=== PATIENT | female | born 1995 | race African-American/Black ===

== ENCOUNTER → 2017-03-24 | Outpatient (CLI) | payer MEDICAID ==
[~2017-03-24] MED LIST: DOXY100C37 PO; NAPR500T PO; NORCOTAB PO; TYLETAB15 PO
--- NOTE | 2017-03-24 15:50 | REP ---
First trimester obstetric ultrasound for dating and viability: Transabdominal and endovaginal imaging are performed. There is an intrauterine gestational sac with a pole. The heart rate is 124 beats per minute. The pole crown-rump length is 0.8 cm corresponding to 6 weeks 5 days gestational age. The PEYTON is 11/12/2017. The maternal adnexa and cul-de-sac are unremarkable. There is no subchorionic hematoma. Signed by Claude Gonzalez MD 03/24/2017 03:42 P
== END ==
LOC: M RAD 15:00
PROVIDERS: ATTEND Physician Assistant
DX: Z32.01 Encounter for pregnancy test, result positive (principal)

== ENCOUNTER 2017-04-13 21:07 | Emergency (ER) | payer MEDICAID ==
[~2017-04-13] VITALS: Ht 165.1 cm; Wt 53.2 kg
[2017-04-13 21:08] VITALS: BP 104/65
[2017-04-13] MEDS ORDERED: TYLETAB15 PO (21:30)
== END 2017-04-13 22:58 | disposition left against medical advice (07) ==
LOC: M ED 21:07
DX: E61.1 Iron deficiency (principal); Z53.29 Procedure and treatment not carried out because of patient's decision for other reasons

== ENCOUNTER 2017-06-28 12:12 | Emergency (ER) | payer MEDICAID, OTHER ==
[~2017-06-28] VITALS: Ht 167.6 cm; Wt 59.5 kg
[~2017-06-28 12:12] MED LIST changes: -DOXY100C37 PO; -NAPR500T PO; -NORCOTAB PO
[2017-06-28 12:13] VITALS: BP 106/66
[2017-06-28] MEDS ORDERED: NORCOTAB PO (13:42)
[2017-06-28] MEDS ORDERED: DOXY100C37 PO (13:42)
[2017-06-28] MEDS ORDERED: NAPR500T PO (13:42)
[2017-06-28] MEDS ORDERED: NAPROXEN 250 MG TAB PO ONE (13:45)
[2017-06-28] MEDS ORDERED: DOXYCYCLINE HYCLATE 100 MG TAB PO ONE (13:45)
== END 2017-06-28 13:55 | disposition home or self-care (01) ==
LOC: M ED 12:12
DX: L02.31 Cutaneous abscess of buttock (principal)

== ENCOUNTER 2017-08-17 10:49 | Emergency (ER) | payer OTHER ==
[~2017-08-17] VITALS: Ht 165.1 cm; Wt 56.8 kg
[~2017-08-17 10:49] MED LIST changes: +DOXY100C37 PO; +NAPR500T PO; +NORCOTAB PO
[2017-08-17 14:21] LABS: CONTROL LINE HCG INT CTR LINE PRESENT
[2017-08-17] MEDS ORDERED: GI COCKTAIL 50ML BTL(HYOSCYAMINE/MAALOX/LIDOCAINE VISCOUS)(1:3:1) PO ONE (14:30)
--- NOTE | 2017-08-17 15:39 | REP ---
Chest x-ray: Two views. History: Central chest pain. . Comparison study: No comparison study . Findings: The lungs are well inflated and free of infiltrate. The pleural angles are sharp. The heart size is normal. Pulmonary vasculature is not increased. No significant bony abnormality is seen. Impression: Negative chest x-ray. Signed by Brandyn Petersen MD 08/17/2017 03:31 P
[2017-08-17] MEDS ORDERED: NAPR500T PO (15:48)
[2017-08-17 15:55] VITALS: BP 116/64
--- NOTE | 2017-08-18 11:23 | ECGEPIP ---
Stationary ECG Study [facility] Test Date: 2017-08-17 Pat Name: FELICIANO STALLWORTH Department: Room: - Gender: F [employer] Tender: sarika : 1995 Requested By: LOLIS HEALY PA-C. Order Number: [id number] Reading MD: Edgardo Kemp Measurements Intervals [place] Rate: 60 P: 78 UT: 186 QRS: 79 QRSD: 89 T: 58 QT: 424 QTc: 425 Interpretive Statements SINUS RHYTHM Within normal limits. No prior ECG available for comparison at the time of interpretation. Electronically Signed On 08-18-2017 11:23:25 EST by Edgardo Kemp
== END 2017-08-17 15:56 | disposition home or self-care (01) ==
LOC: M ED 10:49
DX: R07.89 Other chest pain (principal)

== ENCOUNTER → 2017-10-09 | Outpatient (CLI) | payer OTHER | LOC: M RAD 11:38 | DX: Z36.89 Encounter for other specified antenatal screening (principal); Z3A.08 8 weeks gestation of pregnancy | CPT/HCPCS: 76801 ==

== ENCOUNTER 2017-11-13 23:15 | Emergency (ER) | payer OTHER | END 2017-11-14 00:39 | disposition home or self-care (01) | LOC: M ED 23:15 | DX: O99.89 Other specified diseases and conditions complicating pregnancy, childbirth and the puerperium (principal); S16.1XXA Strain of muscle, fascia and tendon at neck level, initial encounter; T74.11XA Adult physical abuse, confirmed, initial encounter; Y04.8XXA Assault by other bodily force, initial encounter; Y92.099 Unspecified place in other non-institutional residence as the place of occurrence of the external cause; Y93.89 Activity, other specified; Z3A.13 13 weeks gestation of pregnancy | CPT/HCPCS: 99283 ==

== ENCOUNTER 2017-11-22 16:24 | Emergency (ER) | payer OTHER ==
[2017-11-22 17:51] LABS: BASO % 0.2 % (0.0-1.0); EOS % 0.3 % (0.0-3.0); HEMATOCRIT 31.4 % (36.0-47.0); IMMATURE GRANULOCYTE % 0.3 % (0-3.0); LYMPH # 1.1 10^3/uL (1.5-6.5); LYMPH % 11.7 % (24.0-44.0); MEAN CORPUSCULAR HEMOGLOBIN 21.8 pg (27.0-33.0); MEAN CORPUSCULAR HGB CONC 31.8 g/dl (32.0-36.5); MEAN CORPUSCULAR VOLUME 68.6 fl (80.0-96.0); MONO # 0.9 10^3/uL (0.0-0.8); MONO % 9.5 % (0.0-5.0); NEUTROPHILS # 7.1 10^3/uL (1.8-7.7); PLATELET COUNT, AUTOMATED 300 10^3/uL (150-450); RED BLOOD COUNT 4.58 10^6/uL (4.00-5.40); RED CELL DISTRIBUTION WIDTH 20.1 % (11.5-14.5); WHITE BLOOD COUNT 9.1 10^3/uL (4.0-10.0)
[2017-11-22 18:00] LABS: APPEARANCE, URINE CLEAR (CLEAR); BACTERIA, URINE AUTO 1+ (NEGATIVE); BILIRUBIN, URINE AUTO NEGATIVE (NEGATIVE); BLOOD, URINE BLOOD NEGATIVE (NEGATIVE); COLOR, URINE YELLOW (YELLOW); GLUCOSE, URINE (UA) AUTO NEGATIVE (NEGATIVE); KETONE, URINE AUTO TRACE mg/dL (NEGATIVE); LEUKOCYTE ESTERASE, URINE AUTO 1+ (NEGATIVE); MUCUS, URINE SMALL (NEGATIVE); NITRITE, URINE AUTO NEGATIVE (NEGATIVE); PROTEIN, URINE AUTO NEGATIVE (NEGATIVE); RBC, URINE AUTO 3 /HPF (0-3); SQUAMOUS EPITHELIAL CELL UR AU 8 /HPF (0-6); WBC, URINE AUTO 7 /HPF (0-3)
[2017-11-22] MEDS: METOCLOPRAMIDE INJ 10MG/2ML VIAL (J2765) IV (18:07)
[2017-11-22] MEDS: ACETAMINOPHEN 325 MG TAB PO (18:07)
[2017-11-22 18:25] LABS: ALBUMIN/GLOBULIN RATIO 0.59 (1.00-1.93); ALKALINE PHOSPHATASE 68 U/L (45-117); ALT/SGPT 9 U/L (12-78); ANION GAP 9 MEQ/L (8-16); AST/SGOT 10 U/L (7-37); BILIRUBIN,TOTAL 0.3 MG/DL (0.2-1.0); BLOOD UREA NITROGEN 5 MG/DL (7-18); CALCIUM LEVEL 8.8 MG/DL (8.5-10.1); CARBON DIOXIDE LEVEL 25 MEQ/L (21-32); CHLORIDE LEVEL 101 MEQ/L (98-107); CREATININE FOR GFR 0.53 MG/DL (0.55-1.30); GLOMERULAR FILTRATION RATE > 60.0 (>60); GLUCOSE, FASTING 85 MG/DL (70-100); POTASSIUM SERUM 3.4 MEQ/L (3.5-5.1); SODIUM LEVEL 135 MEQ/L (136-145); TOTAL PROTEIN 8.1 GM/DL (6.4-8.2)
== END 2017-11-22 18:58 | disposition home or self-care (01) ==
LOC: M ED 16:24
DX: O99.89 Other specified diseases and conditions complicating pregnancy, childbirth and the puerperium (principal); G44.209 Tension-type headache, unspecified, not intractable; E86.0 Dehydration; Z3A.14 14 weeks gestation of pregnancy
CPT/HCPCS: J2765

== ENCOUNTER → 2017-12-18 | Outpatient (CLI) | payer OTHER | LOC: M RAD 15:06 | DX: Z34.82 Encounter for supervision of other normal pregnancy, second trimester (principal); Z36.89 Encounter for other specified antenatal screening; Z3A.18 18 weeks gestation of pregnancy | CPT/HCPCS: 76817 ==

== ENCOUNTER → 2017-12-30 | Outpatient (CLI) | payer OTHER | LOC: M RAD 13:03 | DX: Z34.80 Encounter for supervision of other normal pregnancy, unspecified trimester (principal) | CPT/HCPCS: 76816 ==

== ENCOUNTER 2018-03-12 22:29 | Outpatient (CLI) | payer OTHER | END 2018-03-12 23:45 | disposition home or self-care (01) | LOC: M LDO 22:29 | DX: O26.893 Other specified pregnancy related conditions, third trimester (principal); Z3A.30 30 weeks gestation of pregnancy | CPT/HCPCS: 59025 ==

== ENCOUNTER 2018-06-06 11:04 | Emergency (ER) | payer OTHER ==
[2018-06-06] MEDS: ONDANSETRON 4MG/2ML VIAL (J2405) IV (11:28)
[2018-06-06] MEDS: NS 1,000 ML IV (11:28)
[2018-06-06 11:31] LABS: BASO % 0.4 % (0.0-1.0); EOS % 0.1 % (0.0-3.0); HEMATOCRIT 33.3 % (36.0-47.0); HEMOGLOBIN 9.7 g/dl (12.0-15.5); IMMATURE GRANULOCYTE % 0.3 % (0-3.0); LYMPH # 0.9 10^3/uL (1.5-6.5); LYMPH % 8.6 % (24.0-44.0); MEAN CORPUSCULAR HEMOGLOBIN 18.9 pg (27.0-33.0); MEAN CORPUSCULAR HGB CONC 29.1 g/dl (32.0-36.5); MEAN CORPUSCULAR VOLUME 64.9 fl (80.0-96.0); MONO # 0.3 10^3/uL (0.0-0.8); MONO % 2.8 % (0.0-5.0); NEUTROPHILS # 9.6 10^3/uL (1.8-7.7); NEUTROPHILS % 87.8 % (36.0-66.0); PLATELET COUNT, AUTOMATED 358 10^3/uL (150-450); RED BLOOD COUNT 5.13 10^6/uL (4.00-5.40); RED CELL DISTRIBUTION WIDTH 20.9 % (11.5-14.5); WHITE BLOOD COUNT 10.9 10^3/uL (4.0-10.0)
[2018-06-06 11:47] LABS: BLOOD UREA NITROGEN 10 MG/DL (7-18); CARBON DIOXIDE LEVEL 24 MEQ/L (21-32); CHLORIDE LEVEL 107 MEQ/L (98-107); GLOMERULAR FILTRATION RATE > 60.0 (>60); GLUCOSE, FASTING 117 MG/DL (70-100); POTASSIUM SERUM 3.6 MEQ/L (3.5-5.1); SODIUM LEVEL 141 MEQ/L (136-145)
[2018-06-06 11:48] LABS: ALBUMIN 3.5 GM/DL (3.2-5.2); ALBUMIN/GLOBULIN RATIO 0.66 (1.00-1.93); ALKALINE PHOSPHATASE 115 U/L (45-117); ALT/SGPT 33 U/L (12-78); AMYLASE 50 U/L (25-115); ANION GAP 10 MEQ/L (8-16); AST/SGOT 22 U/L (7-37); BILIRUBIN,TOTAL 0.3 MG/DL (0.2-1.0); CALCIUM LEVEL 9.1 MG/DL (8.5-10.1); LIPASE 66 U/L (73-393); TOTAL PROTEIN 8.8 GM/DL (6.4-8.2)
[2018-06-06] MEDS: KETOROLAC 30 MG/ML VIAL (J1885) IV (11:50)
[2018-06-06 11:51] LABS: LACTIC ACID SEPSIS PROTOCOL 1.9 MMOL/L (0.4-2.0)
[2018-06-06] MEDS ORDERED: METOCLOPRAMIDE INJ 10MG/2ML VIAL (J2765) As Ordered (12:37)
[2018-06-06] MEDS: METOCLOPRAMIDE INJ 10MG/2ML VIAL (J2765) IV (12:45)
[2018-06-06] MEDS: GASTROGRAFIN SOLUTION 30ML PO ×2 (12:45→13:42)
[2018-06-06] MEDS: MORPHINE 4 MG/ML 1ML VIAL/SYRINGE (J2270) IV (12:46)
[2018-06-06 13:03] LABS: KETONE, URINE AUTO RFX TRACE mg/dL (NEGATIVE); LEUKOCYTE ESTERASE UR AUTO RFX NEGATIVE (NEGATIVE); MUCUS, URINE RFX SMALL (NEGATIVE); NITRITE, URINE AUTO RFX NEGATIVE (NEGATIVE); RBC, URINE AUTO RFX 1 /HPF (0-3); SPECIFIC GRAVITY UR AUTO RFX 1.015 (1.002-1.035); SQUAM EPITHELIAL CELL UR AURFX 2 /HPF (0-6); WBC, URINE AUTO RFX 3 /HPF (0-3)
[2018-06-06 13:21] LABS: HCG, SERUM QUANTITATIVE < 1.0 MIU/ML
[2018-06-06] MEDS ORDERED: ISOVUE-370 76% 100ML VIAL (Q9967) As Ordered (13:39)
== END 2018-06-06 15:39 | disposition home or self-care (01) ==
LOC: M ED 11:04
DX: O90.89 Other complications of the puerperium, not elsewhere classified (principal); R10.84 Generalized abdominal pain; R11.2 Nausea with vomiting, unspecified; R19.7 Diarrhea, unspecified
CPT/HCPCS: J2270

== ENCOUNTER → 2018-09-22 | Outpatient (CLI) | payer OTHER ==
[~2018-09-22] MED LIST changes: +NAPR-50 PO; -NAPR500T PO; +REGL10TA6 PO; +ZOFR4TAB14 PO
[2018-09-22 14:00] LABS: HCG, SERUM QUALITATIVE NEGATIVE (NEGATIVE)
== END ==
LOC: M LAB 13:01
PROVIDERS: ATTEND Nurse Practitioner Adult Health
DX: N92.6 Irregular menstruation, unspecified (principal)

== ENCOUNTER → 2018-09-29 | Outpatient (CLI) | payer OTHER ==
--- NOTE | 2018-09-29 23:06 | REP ---
Clinical: Dating and viability . Technique: Transabdominal pelvic ultrasound followed by transvaginal examination for better evaluation of the endometrium and adnexa with color Doppler evaluation of the ovaries. Findings: Heterogeneous retroverted uterus measures 8.5 x 4.7 x 5.4 cm . The endometrial complex appears somewhat heterogeneous and irregular with possibility of small 7 mm mass/polyp. A small amount of endocervical fluid at the fundus level is noted. No intrauterine identified. Bilateral ovaries are normal in appearance and vascularity without evidence for torsion. Right ovary measures 2.1 x 1.6 x 2.1 cm ; R I = 0.52 . Left ovary measures 4.0 x 2.4 x 3.2 cm with 2.4 cm hemorrhagic cyst ; R I = 0.54 . No pelvic fluid or adnexal mass lesion . Impression: 1. No intrauterine identified. The bilateral ovaries are relatively normal and without torsion. 2.4 cm left hemorrhagic cyst. Correlation with serial HCG levels recommended. Ectopic cannot definitively be excluded. 2. Complex heterogeneous appearance to the endometrium with the possibility of small mass/polyp Electronically Signed by Donald Portillo MD 09/29/2018 10:57 P
== END ==
LOC: M RAD 13:30
PROVIDERS: ATTEND Nurse Practitioner Family
DX: Z32.01 Encounter for pregnancy test, result positive (principal); N83.292 Other ovarian cyst, left side

== ENCOUNTER → 2018-10-01 | Outpatient (CLI) | payer OTHER | LOC: M LAB 13:21 | PROVIDERS: ATTEND Nurse Practitioner Family | DX: Z32.01 Encounter for pregnancy test, result positive (principal) ==

== ENCOUNTER → 2018-10-05 | Outpatient (CLI) | payer OTHER | LOC: M LAB 13:42 | PROVIDERS: ATTEND Nurse Practitioner Family | DX: Z32.01 Encounter for pregnancy test, result positive (principal) ==

== ENCOUNTER → 2018-10-11 | Outpatient (CLI) | payer OTHER ==
--- NOTE | 2018-10-11 12:01 | REP ---
Emergency first trimester obstetric sonography: History: Supervision of . Findings: Scanning demonstrates a viable single intrauterine gestation on transabdominal and transvaginal technique. The crown-rump length of the embryonic pole is 5 mm. This corresponds with a 6 week 1 day gestational age estimate. heart rate is recorded at 115 beats per minute. There is a cyst in the maternal left ovary which is likely corpus luteum. This measures 2.1 cm. Hypoechoic and microcystic endometrial changes are seen surrounding the gestational sac question partial molar or subchorionic bleed. Recommend followup sonography. Mean sac size diameter is 0.8 cm which would correspond with 4 week 5 days. Impression: 1. Viable single intrauterine gestation at 6 weeks 1 day by crown-rump length. PEYTON by today's sonography June 05, 2019. 2. Hypoechoic and microcystic endometrial changes are seen surrounding the gestational sac, question partial molar or subchorionic bleed. Recommend followup sonography. Electronically Signed by Brandyn Petersen MD 10/11/2018 01:55 P
== END ==
LOC: M RAD 10:08
PROVIDERS: ATTEND Registered Nurse
DX: Z34.82 Encounter for supervision of other normal pregnancy, second trimester (principal)

== ENCOUNTER 2018-10-12 06:15 | Emergency (ER) | payer OTHER ==
[~2018-10-12] VITALS: Ht 165.1 cm; Wt 59.1 kg
[2018-10-12 07:29] LABS: BASO # 0.1 10^3/uL (0.0-0.2); BASO % 1.1 % (0.0-1.0); EOS # 0.2 10^3/uL (0.0-0.50); EOS % 2.7 % (0.0-3.0); HEMATOCRIT 30.2 % (36.0-47.0); HEMOGLOBIN 9.2 g/dl (12.0-15.5); LYMPH % 35.9 % (24.0-44.0); MEAN CORPUSCULAR HEMOGLOBIN 20.4 pg (27.0-33.0); MEAN CORPUSCULAR HGB CONC 30.5 g/dl (32.0-36.5); MEAN CORPUSCULAR VOLUME 67.1 fl (80.0-96.0); MONO # 0.7 10^3/uL (0.0-0.8); MONO % 12.3 % (0.0-5.0); NEUTROPHILS # 2.6 10^3/uL (1.8-7.7); NEUTROPHILS % 47.6 % (36.0-66.0); PLATELET COUNT, AUTOMATED 293 10^3/uL (150-450); WHITE BLOOD COUNT 5.5 10^3/uL (4.0-10.0)
--- NOTE | 2018-10-12 08:28 | REP ---
First trimester obstetric sonography: History: 6-week gestation on ultrasound October 11, 2018. Vaginal bleeding. Comparison study: 11 October 2018. Findings: Transabdominal and transvaginal scanning are performed. Uterine dimensions are 8.3 x 5.2 x 5.4 cm. The uterus is somewhat retroverted. The uterus is empty today. No gestational sac is seen consistent with spontaneous miscarriage. Endometrial echo is somewhat heterogeneous measuring up to 1.5 cm in thickness. There is a small quantity of free fluid in the cul-de-sac. The right ovary is obscured by bowel gas today. Left ovary measures 4.1 x 1.9 x 2.4 cm. It contains a 1.8 cm follicle cyst consistent with a corpus luteum. Impression: Empty uterus today consistent with interval miscarriage. A small quantity of cul-de-sac fluid. Right ovary is obscured. 1.8 cm corpus luteum cyst left ovary. Electronically Signed by Brandyn Petersen MD 10/12/2018 10:02 A
[2018-10-12 09:30] VITALS: BP 118/56
== END 2018-10-12 10:00 | disposition home or self-care (01) ==
LOC: M ED 06:15
DX: O03.9 Complete or unspecified spontaneous abortion without complication (principal)

== ENCOUNTER 2018-11-13 17:50 | Emergency (ER) | payer OTHER ==
[~2018-11-13] VITALS: Ht 165.1 cm; Wt 57.7 kg
[2018-11-13] MEDS ORDERED: MAGIC MOUTHWASH SUSPENSION BTL SS ONE (18:45)
[2018-11-13] MEDS ORDERED: MAGICMW SSP (18:46)
[2018-11-13 18:58] VITALS: BP 102/56
== END 2018-11-13 19:09 | disposition home or self-care (01) ==
LOC: M ED 17:50
DX: J02.9 Acute pharyngitis, unspecified (principal)

== ENCOUNTER → 2018-12-30 | Outpatient (CLI) | payer OTHER ==
[~2018-12-30] MED LIST changes: +HYDR-3715 PO; +MAGICMW SSP; -NAPR-50 PO; +NAPR-837 PO; -NORCOTAB PO
--- NOTE | 2018-12-30 11:12 | REP ---
Obstetric sonography: History: Lower abdominal pain. Findings: Transabdominal and transvaginal scanning are performed. An intrauterine gestational sac is seen partially surrounded by a subchorionic hemorrhage. No embryonic pole is visible within the sac. There is a yolk sac seen on transvaginal imaging. By mean sac size diameter of 13 mm, this would correlate with a 6 week 1 day gestational age estimate. The subchorionic fluid collection measures 3.8 x 0.9 x 2.6 cm. Normal right ovary is seen measuring 2.2 x 1.6 x 2.2 cm. Its Doppler flow is normal, resistive index is 0.17. The left ovary measures 2.9 x 1.4 x 2.0 cm. There is a hypoechoic follicle in the left ovary measuring 1.3 x 1.4 x 1.2 cm. Its Doppler flow is normal, resistive index 0.51. Uterine dimensions are 8.0 x 5.3 x 6.8 cm. Uterus is somewhat retroverted. No free cul-de-sac fluid. Impression: Intrauterine gestational sac contains a yolk sac but no identifiable embryonic pole. 6 week 1 day by mean sac size diameter. viability cannot be confirmed. There is a subchorionic hemorrhage. Clinical and possibly sonographic followup is advised. Electronically Signed by Brandyn Petersen MD 12/30/2018 11:13 A
== END ==
LOC: M RAD 10:00
PROVIDERS: ATTEND Obstetrics & Gynecology Obstetrics
DX: O36.80X0 Pregnancy with inconclusive fetal viability, not applicable or unspecified (principal); O20.8 Other hemorrhage in early pregnancy; Z3A.01 Less than 8 weeks gestation of pregnancy; N85.4 Malposition of uterus; R10.30 Lower abdominal pain, unspecified